=== PATIENT | female | born 1965 | race American Indian/Alaskan Native ===

== ENCOUNTER 2016-11-08 02:13 | Emergency (ER) | payer MEDICAID ==
[2016-11-08] MEDS ORDERED: MOTRIN PO ONE (08:44)
--- NOTE | 2016-11-08 08:45 | Emergency Department Report ---
ED ENT HPI - General Chief complaint: Sore Throat Stated complaint: FEVER, SORE THROAT Time Seen by Provider: 11/08/16 08:43 Source: patient Mode of arrival: Ambulatory Limitations: No Limitations - History of Present Illness Initial comments: 50-year-old female past medical history diabetes type 2 presents with complaint of 5 days of sore throat nasal and ear congestion. States she has had some body aches and some difficulty swallowing solids but not liquids. Patient speaking in full sentences him a no visible trismus or drooling. Awake alert and oriented 3, states she has also had slight cough. Denies any recent travel. Denies any chest pain no shortness of breath no palpitations no nausea no vomiting. States she may have been urinating slightly more than usual. MD complaint: sore throat Onset/Timin -: week(s) Location: throat Severity: moderate Severity scale (0 -10): 5 Quality: aching - Related Data Previous Rx's Medication Instructions Recorded Last Taken Type metFORMIN [Glucophage] 500 mg PO BID #60 tablet 11/11/14 1 Day Ago Rx Benzocaine/Menthol [Cepacol Sore 1 each MM Q4H PRN #18 lozenge 11/08/16 Unknown Rx Throat Lozenge] Ibuprofen [Motrin] 600 mg PO Q8H PRN #25 tablet 11/08/16 Unknown Rx Allergies Allergy/AdvReac Type Severity Reaction Status Date / Time No Known Allergies Allergy Verified 11/11/14 15:33 ED Dental HPI - General Chief complaint: Sore Throat Stated complaint: FEVER, SORE THROAT Time Seen by Provider: 11/08/16 08:43 Source: patient Mode of arrival: Ambulatory Limitations: No Limitations - Related Data Previous Rx's Medication Instructions Recorded Last Taken Type metFORMIN [Glucophage] 500 mg PO BID #60 tablet 11/11/14 1 Day Ago Rx Benzocaine/Menthol [Cepacol Sore 1 each MM Q4H PRN #18 lozenge 11/08/16 Unknown Rx Throat Lozenge] Ibuprofen [Motrin] 600 mg PO Q8H PRN #25 tablet 11/08/16 Unknown Rx Allergies Allergy/AdvReac Type Severity Reaction Status Date / Time No Known Allergies Allergy Verified 11/11/14 15:33 ED Review of Systems ROS: Stated complaint: FEVER, SORE THROAT Other details as noted in HPI ED Past Medical Hx - Past Medical History Previous Medical History?: Yes Hx Diabetes: Yes (type 2) Hx Psychiatric Treatment: Yes ("chronic depression") Additional medical history: "chronic pain" - Surgical History Past Surgical History?: Yes Additional Surgical History: hysterectomy. BILATERAL CARPAL TUNNEL - Social History Smoking Status: Never Smoker Substance Use Type: None - Medications Home Medications: Home Medications Medication Instructions Recorded Confirmed Last Taken Type metFORMIN [Glucophage] 500 mg PO BID #60 tablet 11/11/14 11/08/16 1 Day Ago Rx Benzocaine/Menthol [Cepacol Sore 1 each MM Q4H PRN #18 lozenge 11/08/16 Unknown Rx Throat Lozenge] Ibuprofen [Motrin] 600 mg PO Q8H PRN #25 tablet 11/08/16 Unknown Rx ED Physical Exam - General Limitations: No Limitations General appearance: alert, in no apparent distress - Head Head exam: Present: atraumatic, normocephalic - Eye Eye exam: Present: normal appearance, PERRL, EOMI - ENT ENT exam: Present: mucous membranes moist - Expanded ENT Exam Expanded Mouth exam: Present: normal external inspection Teeth exam: Present: normal inspection Throat exam: Positive: tonsillar erythema (no peritonsillar abscess, uvula is midline, visible tonsillar exudates left tonsillar pillar), tonsillar exudate - Neck Neck exam: Present: normal inspection, full ROM - Respiratory Respiratory exam: Present: normal lung sounds bilaterally. Absent: respiratory distress - Cardiovascular Cardiovascular Exam: Present: regular rate, normal rhythm. Absent: systolic murmur, diastolic murmur, rubs, gallop - GI/Abdominal GI/Abdominal exam: Present: soft, normal bowel sounds - Extremities Exam Extremities exam: Present: normal inspection - Back Exam Back exam: Present: normal inspection - Neurological Exam Neurological exam: Present: alert, oriented X3 - Psychiatric Psychiatric exam: Present: normal affect, normal mood - Skin Skin exam: Present: warm, dry, intact, normal color. Absent: rash ED Course Vital Signs 11/08/16 11/08/16 07:12 08:53 Temperature 98.2 F Pulse Rate 97 H Respiratory 14 16 Rate Blood Pressure 159/104 O2 Sat by Pulse 99 Oximetry ED Medical Decision Making - Lab Data Result diagrams: 11/08/16 09:56 11/08/16 09:56 - Medical Decision Making A/P: Strep pharyngitis, hyperglycemia 1-I discussed case with Dr. Wilson 2-patient rehydrated with 2 L of IV normal saline, fingerstick glucose rechecked 3-strep pharyngitis empirically treated with Bicillin IM 4-will prescribe Motrin 600 when necessary for fevers chills sore throat, throat lozenges when necessary, follow-up with primary care doctor, vital signs rechecked before discharge, stable Critical care attestation.: If time is entered above; I have spent that time in minutes in the direct care of this critically ill patient, excluding procedure time. ED Disposition Clinical Impression: Strep pharyngitis Disposition: DISCHARGED TO HOME OR SELFCARE Is pt being admited?: No Does the pt Need Aspirin: No Condition: Stable Instructions: Strep Throat (ED) Prescriptions: Benzocaine/Menthol [Cepacol Sore Throat Lozenge] 1 each MM Q4H PRN #18 lozenge PRN Reason: Sore Throat Ibuprofen [Motrin] 600 mg PO Q8H PRN #25 tablet PRN Reason: Pain Referrals: KRYS SCOTT MD [Primary Care Provider] - 3-5 Days RHONDA CENTENO JR, MD [Staff Physician] - 3-5 Days Forms: Work/School Release Form(ED), Accompanied Note Time of Disposition: 12:59
[2016-11-08] MEDS ORDERED: AUGMENTIN 875 MG PO ONE (09:02)
[2016-11-08 09:08] LABS: Bilirubin,Urine NEG (Negative); Blood,Urine NEG (Negative); Ketones,Urine 80 mg/dL (Negative); Leukocyte Esterase,Urine NEG (Negative); Nitrite,Urine NEG (Negative); Protein,Urine <15 mg/dL mg/dL (Negative); Urobilinogen,Urine < 2.0 mg/dL (<2.0)
[2016-11-08] MEDS ORDERED: NACL 0.9% 1000 ML 1,000 ML IV ONE ×2 (09:41→11:13)
[2016-11-08 10:14] LABS: Basophils % (Auto) 0.4 % (0.0-1.8); Eosinophils % (Auto) 0.5 % (0.0-4.3); Hematocrit 38.4 % (30.3-42.9); Hemoglobin 12.6 gm/dl (10.1-14.3); Mean Corpuscular HGB Conc 33 % (30-34); Mean Corpuscular Hemoglobin 26 pg (28-32); Mean Corpuscular Volume 80 fl (79-97); Platelet Count 267 K/mm3 (140-440); Red Blood Count 4.82 M/mm3 (3.65-5.03); Red Cell Distribution Width 12.7 % (13.2-15.2); White Blood Count 9.4 K/mm3 (4.5-11.0)
[2016-11-08 10:29] LABS: Anion Gap 22 mmol/L; Blood Urea Nitrogen 9 mg/dL (7-17); Calcium 9.6 mg/dL (8.4-10.2); Carbon Dioxide 24 mmol/L (22-30); Chloride 93.9 mmol/L (98-107); Glucose 296 mg/dL (65-100); Potassium 3.5 mmol/L (3.6-5.0); Sodium 136 mmol/L (137-145)
[2016-11-08 10:33] LABS: Albumin 3.7 g/dL (3.9-5); Albumin/Globulin Ratio 0.8 %; Bilirubin,Direct 0.2 mg/dL (0-0.2); Bilirubin,Indirect 0.7 mg/dL; Bilirubin,Total 0.9 mg/dL (0.1-1.2); Total Protein 8.1 g/dL (6.3-8.2)
[2016-11-08] MEDS ORDERED: BICILLIN L-A IM ONE ×3 (11:09→11:15)
[2016-11-08] MEDS ORDERED: BICILLIN L-A IM NR (13:00)
[2016-11-08 13:22] VITALS: BP 152/90
--- NOTE | 2016-11-09 08:51 | XRay Report ---
ROUTINE CHEST, TWO VIEWS: PA and lateral views demonstrate the heart and mediastinal contour to be of normal size and shape. The lungs are clear and fully expanded and the soft tissues and bony structures are normal. IMPRESSION: Normal study.
== END 2016-11-08 13:38 | disposition home or self-care (01) ==
LOC: ED 02:13
DX: J02.0 Streptococcal pharyngitis (principal); E11.9 Type 2 diabetes mellitus without complications; F32.9 Major depressive disorder, single episode, unspecified; G89.29 Other chronic pain; Z90.710 Acquired absence of both cervix and uterus
CPT/HCPCS: 36415; 71020; 80048; 80074; 81001; 81025; 82140; 82550; 82805; 82962; 84600; 85025; 87086; 87400; 87430; 96360; 96372; 99284; J0561; J7030

== ENCOUNTER 2019-03-21 22:03 | Emergency (ER) | payer MEDICAID ==
--- NOTE | 2019-03-21 23:18 | Event Note ---
ED Screening Note Date of service: 03/21/19 Time: 23:16 ED Screening Note: 53 y/o female comes in for hyperglycemia, abd pain and boils under her arm. This initial assessment/diagnostic orders/clinical plan/treatment(s) is/are subject to change based on patients health status, clinical progression and re- assessment by fellow clinical providers in the ED. Further treatment and workup at subsequent clinical providers discretion. Patient/guardian urged not to elope from the ED as their condition may be serious if not clinically assessed and managed. Initial orders include:
[2019-03-22 00:18] LABS: Hemoglobin 12.8 gm/dl (10.1-14.3); Red Blood Count 4.68 M/mm3 (3.65-5.03)
[2019-03-22 00:19] LABS: Basophils % (Auto) 0.5 % (0.0-1.8); Eosinophils # (Auto) 0.1 K/mm3 (0.0-0.4); Eosinophils % (Auto) 1.5 % (0.0-4.3); Hematocrit 37.9 % (30.3-42.9); Lymphocytes # (Auto) 2.1 K/mm3 (1.2-5.4); Lymphocytes % (Auto) 39.8 % (13.4-35.0); Mean Corpuscular HGB Conc 34 % (30-34); Mean Corpuscular Volume 81 fl (79-97); Mean Platelet Volume 8.6 fl (6-12); Monocytes # (Auto) 0.3 K/mm3 (0.0-0.8); Monocytes % (Auto) 5.1 % (0.0-7.3); Platelet Count 283 K/mm3 (140-440); Red Cell Distribution Width 13.1 % (13.2-15.2)
[2019-03-22 00:28] LABS: Alanine Aminotransferase 12 units/L (7-56); Albumin 4.1 g/dL (3.9-5); BUN/Creatinine Ratio 23; Blood Urea Nitrogen 9 mg/dL (7-17); Calcium 9.2 mg/dL (8.4-10.2); Hemolysis Index 9
[2019-03-22 01:22] LABS: Bilirubin,Urine NEG (Negative); Blood,Urine NEG (Negative); Color,Urine Yellow (Yellow); Mucus,Urine FEW /HPF; Protein,Urine <15 mg/dL mg/dL (Negative)
--- NOTE | 2019-03-22 02:23 | Emergency Department Report ---
ED General Adult HPI - General Chief complaint: Hyperglycemia Stated complaint: BACK PAIN/KNOTS UNDER ARM/ ABD PAIN Time Seen by Provider: 03/21/19 23:14 Source: patient, RN notes reviewed, old records reviewed Mode of arrival: Ambulatory Limitations: No Limitations - History of Present Illness Initial comments: This is a 53-year-old female. The patient has a past medical history of chronic pain, diabetes, and swollen pelvic area. Today, the patient presents to the ER with complaints of boils in her bilateral armpits, fungal discharge in her bilateral inguinal regions and perirectal region, left lower quadrant pain that radiates to the back, and suprapubic swelling, left-sided labial swelling. Symptoms have been present for the past day or 2. Pain is sharp, aching and throbbing, increases with palpation and decreases with rest. Patient denies vomiting. Patient makes no complaint of blurred vision to this provider. In the emergency room, patient treated with fluids and hydromorphone, which greatly improved her pain. -: Gradual Location: back, abdomen, pelvis, genitals, left, right, upper extremity Radiation: back Severity scale (0 -10): 8 Quality: aching Consistency: constant, now resolved Improves with: medication Worsens with: movement - Related Data Previous Rx's Medication Instructions Recorded Last Taken Type metFORMIN [Glucophage] 500 mg PO BID #60 tablet 05/26/18 Unknown Rx Acetaminophen [Arthritis Pain 650 mg PO Q6HR PRN #30 tablet.er 03/22/19 Unknown Rx Reliever] Doxycycline Hyclate [Doxycycline 100 mg PO Q12HR #14 tab 03/22/19 Unknown Rx Hyclate TAB] Ibuprofen [Motrin] 600 mg PO Q8H PRN #30 tablet 03/22/19 Unknown Rx Lancets [Lancets Thin] 1 each MC BID #60 each 03/22/19 Unknown Rx Nystatin [Nystop Powder] 60 gm TP TID #1 powder 03/22/19 Unknown Rx metFORMIN [Glucophage] 500 mg PO BID #60 tablet 03/22/19 Unknown Rx Allergies Allergy/AdvReac Type Severity Reaction Status Date / Time No Known Allergies Allergy Verified 11/11/14 15:33 ED Review of Systems ROS: Stated complaint: BACK PAIN/KNOTS UNDER ARM/ ABD PAIN Other details as noted in HPI Constitutional: malaise. denies: fever Eyes: denies: eye discharge ENT: denies: epistaxis Respiratory: denies: cough Cardiovascular: denies: chest pain Gastrointestinal: abdominal pain. denies: vomiting, hematemesis, melena, hematochezia Genitourinary: denies: frequency Musculoskeletal: back pain, arthralgia Skin: rash, lesions Neurological: weakness Psychiatric: anxiety ED Past Medical Hx - Past Medical History Hx Diabetes: Yes (type 2) Hx Psychiatric Treatment: Yes ("chronic depression") Additional medical history: "chronic pain" - Surgical History Additional Surgical History: hysterectomy. BILATERAL CARPAL TUNNEL - Social History Smoking Status: Unknown if ever smoked Substance Use Type: None - Medications Home Medications: Home Medications Medication Instructions Recorded Confirmed Last Taken Type metFORMIN [Glucophage] 500 mg PO BID #60 tablet 05/26/18 03/22/19 Unknown Rx Acetaminophen [Arthritis Pain 650 mg PO Q6HR PRN #30 tablet.er 03/22/19 Unknown Rx Reliever] Doxycycline Hyclate [Doxycycline 100 mg PO Q12HR #14 tab 03/22/19 Unknown Rx Hyclate TAB] Ibuprofen [Motrin] 600 mg PO Q8H PRN #30 tablet 03/22/19 Unknown Rx Lancets [Lancets Thin] 1 each MC BID #60 each 03/22/19 Unknown Rx Nystatin [Nystop Powder] 60 gm TP TID #1 powder 03/22/19 Unknown Rx metFORMIN [Glucophage] 500 mg PO BID #60 tablet 03/22/19 Unknown Rx ED Physical Exam - General Limitations: No Limitations General appearance: alert, anxious, in distress - Head Head exam: Present: atraumatic, normocephalic - Eye Eye exam: Present: normal appearance, EOMI. Absent: nystagmus - ENT ENT exam: Present: normal exam, normal orophraynx, mucous membranes moist, normal external ear exam - Neck Neck exam: Present: normal inspection, full ROM. Absent: tenderness, meningismus - Respiratory Respiratory exam: Present: normal lung sounds bilaterally. Absent: respiratory distress - Cardiovascular Cardiovascular Exam: Present: regular rate, normal rhythm, normal heart sounds. Absent: bradycardia, tachycardia, irregular rhythm, systolic murmur, diastolic murmur, rubs, gallop - GI/Abdominal GI/Abdominal exam: Present: soft, tenderness, other (there is suprapubic and left lower quadrant tenderness. There is no rebound, guarding or peritoneal signs.). Absent: distended, guarding, rebound, rigid, pulsatile mass - Rectal Rectal exam: Absent: normal inspection (excoriation and irritation noted to the gluteal cleft. Fungal lesions noted. Chaperoned by nurse Valeria Ramírez) - External exam: Present: erythema, swelling, other (the suprapubic region appears to be swollen. The left labia is swollen. There is no tenderness. There is no streaking or pus. There is no crepitus. Fungal lesions noted in the bilateral inguinal creases. Chaperoned by nurse Valeria Ramírez). Absent: normal external exam - Extremities Exam Extremities exam: Present: normal inspection, full ROM, other (2+ pulses noted in the bilateral upper, lower extremities. Compartments soft. No long bony tenderness. The pelvis is stable.). Absent: pedal edema, joint swelling, calf tenderness - Back Exam Back exam: Present: normal inspection, full ROM. Absent: tenderness, CVA tenderness (R), CVA tenderness (L), paraspinal tenderness, vertebral tenderness - Neurological Exam Neurological exam: Present: alert, oriented X3, other (Extraocular movements intact. Tongue midline. No facial droop. Facial sensation intact to light touch in the V1, V2, V3 distribution bilaterally. 5 and 5 strength in 4 extremities.. Sensation is intact to light touch in 4 extremities.). Absent: motor sensory deficit - Psychiatric Psychiatric exam: Present: anxious - Skin Skin exam: Present: warm, normal color, rash (fungal lesions and rash noted to the bilateral inguinal regions, and leonardo annal regions), other (patient has induration in her bilateral axilla, without abscesses. She has subcentimeter nodule in the right axilla and left axilla. The induration is minimally tender. There is no crepitus. There is minimal discharge.) ED Course Vital Signs 03/21/19 03/22/19 03/22/19 23:21 00:28 00:30 Temperature 98.1 F Pulse Rate 91 H 88 83 Respiratory 18 24 Rate Blood Pressure 161/107 160/85 Blood Pressure [Left] O2 Sat by Pulse 100 99 99 Oximetry 03/22/19 03/22/19 03/22/19 00:40 00:46 01:00 Temperature 97.7 F Pulse Rate 85 83 85 Respiratory 17 13 14 Rate Blood Pressure 163/97 152/98 Blood Pressure 160/85 [Left] O2 Sat by Pulse 96 97 100 Oximetry 03/22/19 03/22/19 03/22/19 01:30 01:46 02:00 Temperature Pulse Rate 83 87 83 Respiratory 17 14 Rate Blood Pressure 152/98 158/103 Blood Pressure [Left] O2 Sat by Pulse 97 99 98 Oximetry 03/22/19 03/22/19 03/22/19 02:16 02:30 03:04 Temperature Pulse Rate 78 86 Respiratory 13 16 Rate Blood Pressure 158/103 158/103 Blood Pressure [Left] O2 Sat by Pulse 98 100 100 Oximetry 03/22/19 03/22/19 03/22/19 03:16 03:30 03:46 Temperature Pulse Rate 78 79 76 Respiratory 19 14 Rate Blood Pressure 152/101 152/101 Blood Pressure [Left] O2 Sat by Pulse 96 94 94 Oximetry 03/22/19 03/22/19 03/22/19 04:00 04:16 04:30 Temperature Pulse Rate 77 82 77 Respiratory 12 Rate Blood Pressure 142/86 142/86 142/86 Blood Pressure [Left] O2 Sat by Pulse 96 95 96 Oximetry 03/22/19 03/22/19 04:46 05:00 Temperature Pulse Rate 78 79 Respiratory 13 Rate Blood Pressure 142/86 144/90 Blood Pressure [Left] O2 Sat by Pulse 98 97 Oximetry - Reevaluation(s) Reevaluation #1: 03/22/19 02:23 ga diagnostic technologist aware 11/29/2018 1 11/29/2018 ACETAMINOPHEN-COD #3 TABLET 16.0 2 GR BRO [id number] [facility] (5195) 0 36.0 MME Medicaid [place] ED Medical Decision Making - Lab Data Result diagrams: 03/21/19 23:24 03/21/19 23:24 Vital Signs 03/21/19 03/22/19 03/22/19 23:21 00:28 00:30 Temperature 98.1 F Pulse Rate 91 H 88 83 Respiratory 18 24 Rate Blood Pressure 161/107 160/85 Blood Pressure [Left] O2 Sat by Pulse 100 99 99 Oximetry 03/22/19 03/22/19 03/22/19 00:40 00:46 01:00 Temperature 97.7 F Pulse Rate 85 83 85 Respiratory 17 13 14 Rate Blood Pressure 163/97 152/98 Blood Pressure 160/85 [Left] O2 Sat by Pulse 96 97 100 Oximetry 03/22/19 03/22/19 03/22/19 01:30 01:46 02:00 Temperature Pulse Rate 83 87 83 Respiratory 17 14 Rate Blood Pressure 152/98 158/103 Blood Pressure [Left] O2 Sat by Pulse 97 99 98 Oximetry 03/22/19 03/22/19 03/22/19 02:16 02:30 03:04 Temperature Pulse Rate 78 86 Respiratory 13 16 Rate Blood Pressure 158/103 158/103 Blood Pressure [Left] O2 Sat by Pulse 98 100 100 Oximetry 03/22/19 03/22/19 03/22/19 03:16 03:30 03:46 Temperature Pulse Rate 78 79 76 Respiratory 19 14 Rate Blood Pressure 152/101 152/101 Blood Pressure [Left] O2 Sat by Pulse 96 94 94 Oximetry 03/22/19 03/22/19 03/22/19 04:00 04:16 04:30 Temperature Pulse Rate 77 82 77 Respiratory 12 Rate Blood Pressure 142/86 142/86 142/86 Blood Pressure [Left] O2 Sat by Pulse 96 95 96 Oximetry 03/22/19 03/22/19 04:46 05:00 Temperature Pulse Rate 78 79 Respiratory 13 Rate Blood Pressure 142/86 144/90 Blood Pressure [Left] O2 Sat by Pulse 98 97 Oximetry - Radiology Data Radiology results: report reviewed, image reviewed Print Report Referring Physician: DORI WOLFE Patient Name: KORI SANCHEZ Date of : 1965 Sex: Female Report Date: 2019-03-22 Report Status: [place] [address] Cat Scan Report Signed Patient: KORI SANCHEZ MR#: [id number] : 1965 Acct:[id number] Age/Sex: 53 / F ADM Date: 03/21/19 Loc: ED Attending Dr: Ordering Physician: DORI WOLFE MD Date of Service: 03/22/19 Procedure(s): CT abdomen pelvis w con Accession Number(s): [id number] cc: DORI WOLFE MD CT of the abdomen and pelvis with contrast INDICATION: Left pelvic pain COMPARISON: 11/11/2014 FINDINGS: Lung bases are clear. There is slight fatty infiltration of the liver. The spleen, pancreas, adrenal glands and kidneys show no abnormalities. No definite gallbladder or biliary tree abnormality. No fluid or adenopathy in the upper abdomen. CT of the pelvis shows scattered colonic diverticula. Appendix is seen and is normal. There is no diverticulitis. Uterus has been removed. No pelvic fluid or adenopathy. There is induration of the labia and perineum but there is no abscess or gas collection. No foreign body demonstrated. Again there is no intra-abdominal inflammatory process. IMPRESSION: Perineal cellulitis. No evidence of gangrene or intra-abdominal process. Automated exposure control was utilized to diminish radiation dose. Signer Name: Yves Lebron MD Signed: 03/22/2019 3:48 AM Workstation Name: [id number] Transcribed By: NISHI Dictated By: Yves Lebron MD Electronically Authenticated By: Yves Lebron MD Signed Date/Time: 03/22/19347 DD/ 034 - Medical Decision Making Differential diagnosis, including but not limited to: Colitis, diverticulitis, pyelonephritis, renal abscess, constipation, noncompliance, cellulitis, reactive changes, cutaneous tisha, hidradenitis, cellulitis Assessment and plan: 53-year-old female with multiple complaints Complaint #1, bilateral axillary boils. No obvious abscesses noted. Minimal induration noted. Small lesions noted that are already open, with no active or minimal drainage. Patient can apply warm compresses, wear loose fitting clothing, recommend better glycemic control, recommends no deodorant, and expectant management. At this point time, does not require incision and drainage, and can be managed supportively and symptomatically Complaint #2, abdominal pain: Laboratory studies reviewed, unremarkable, urinalysis not consistent with bacterial infection, CT scan of the abdomen and pelvis does not show any acute surgical process or emergent process. Complaint #3, fungal lesions noted in the gluteal cleft, and inguinal regions/labial regions, likely secondary to poor glycemic control. Plan is to apply topical nystatin, oral antibiotics. CT scan interpretation is reviewed and appreciated, suspects changes noted are likely reactive secondary to c andidiasis. Patient's pain is improved after hydromorphone. She is retching currently in her stretcher, and does not appear to be in any acute distress. She will be discharged with pain medication, topical nystatin, refill all metformin, oral antibiotics, instructions to follow up in 2-3 days for repeat evaluation. I do not have clinical suspicion for vaginal or labial cellulitis at this time, as she is not tender in these areas, this is discussed with gynecology on-call, Dr. Mahajan, who agrees with this plan of care, and agrees that patient does not meet criteria for admission to the hospital for intravenous antibiotics. Critical care attestation.: If time is entered above; I have spent that time in minutes in the direct care of this critically ill patient, excluding procedure time. ED Disposition Clinical Impression: Candidiasis, Lower abdominal pain, Boil, axilla Disposition: DC- TO HOME OR SELFCARE Is pt being admited?: No Does the pt Need Aspirin: No Condition: Stable Additional Instructions: Do not take metformin for the next 48 hours. Take pain medications as needed/d irected. Take the antibiotics as directed. Use the nystatin powder as directed. Apply warm compresses to the bilateral armpits, otherwise, keep them dry, and loosely covered, and do not apply deodorant. Wash vaginal region, and rectal/anal region, and inner leg regions once a day, with gentle soap and water. Otherwise, keep dry, and apply nystatin powder externally to these areas. Patient most likely is experiencing severe fungal irritation of the rectum, and bilateral inner thigh regions likely secondary to elevated blood sugar level. Recommend that patient improve diet, to lower blood sugar levels. It typically takes weeks or months to improve blood sugar levels. Patient may reference the [place] [employer] website for diet recommendations. This return to the ER in 2-3 days for wound checkup/evaluation, with the patient may follow up with a primary care doctor or laborer aquatic life for a wound checkup/evaluation. Please return to the emergency room right away with new pain, worsened pain, migration of pain, projectile vomiting, change in mental status, confusion, inability to tolerate liquid feeds, new, worsening or different symptoms not present on the initial emergency room evaluation. Long-term maintenance and control diabetes to lower blood sugar levels likely result in improvement in symptoms, and in patient quality of life. Prescriptions: Acetaminophen [Arthritis Pain Reliever] 650 mg PO Q6HR PRN #30 tablet.er PRN Reason: Pain , Severe (7-10) Doxycycline Hyclate [Doxycycline Hyclate TAB] 100 mg PO Q12HR #14 tab metFORMIN [Glucophage] 500 mg PO BID #60 tablet Lancets [Lancets Thin] 1 each MC BID #60 each Ibuprofen [Motrin] 600 mg PO Q8H PRN #30 tablet PRN Reason: Pain Nystatin [Nystop Powder] 60 gm TP TID #1 powder Referrals: NADIA THOMPSON MD [Primary Care Provider] - 3-5 Days EDUARDO MAHAJAN MD [Staff Physician] - 3-5 Days
[2019-03-22] MEDS ORDERED: DILAUDID IV ONE (02:36)
[2019-03-22] MEDS ORDERED: NYSTOP TP ONE (02:36)
[2019-03-22] MEDS ORDERED: NACL 0.9% 500 ML 500 ML IV ONE (02:36)
--- NOTE | 2019-03-22 03:52 | Cat Scan Report ---
CT of the abdomen and pelvis with contrast INDICATION: Left pelvic pain COMPARISON: 11/11/2014 FINDINGS: Lung bases are clear. There is slight fatty infiltration of the liver. The spleen, pancreas , adrenal glands and kidneys show no abnormalities. No definite gallbladder or biliary tree abnormali ty. No fluid or adenopathy in the upper abdomen. CT of the pelvis shows scattered colonic diverticula. Appendix is seen and is normal. There is no div erticulitis. Uterus has been removed. No pelvic fluid or adenopathy. There is induration of the labia and perineum but there is no abscess or gas collection. No foreign body demonstrated. Again there is no intra-abdominal inflammatory process. IMPRESSION: Perineal cellulitis. No evidence of gangrene or intra-abdominal process. Automated exposure control was utilized to diminish radiation dose. Signer Name: Yves Lebron MD Signed: 03/22/2019 3:48 AM Workstation Name: [id number]
[2019-03-22 05:06] VITALS: BP 144/90
== END 2019-03-22 05:53 | disposition home or self-care (01) ==
LOC: ED 22:03
DX: B37.9 Candidiasis, unspecified (principal); L02.92 Furuncle, unspecified; R10.32 Left lower quadrant pain; E11.9 Type 2 diabetes mellitus without complications; F32.9 Major depressive disorder, single episode, unspecified; Z90.710 Acquired absence of both cervix and uterus; Z79.899 Other long term (current) drug therapy
CPT/HCPCS: 36415; 74177; 80053; 81001; 82962; 85025; 96374; 99285; J1170; J7040; Q9967

== ENCOUNTER 2019-06-05 18:19 | Emergency (ER) | payer OTHER, MEDICAID ==
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
[2019-06-05] MEDS ORDERED: TORADOL IM ONE (22:09)
--- NOTE | 2019-06-05 23:13 | XRay Report ---
Pelvis single view INDICATION: Pelvic pain following injury IMPRESSION: No acute findings of the pelvis appreciated. Signer Name: Crispin Silva MD Signed: 06/05/2019 11:09 PM Workstation Name: [id number]
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
[2019-06-06 00:32] VITALS: BP 156/98
== END 2019-06-06 00:32 | disposition home or self-care (01) ==
LOC: ED 18:19
DX: S16.1XXA Strain of muscle, fascia and tendon at neck level, initial encounter (principal); S70.02XA Contusion of left hip, initial encounter; E11.9 Type 2 diabetes mellitus without complications; F32.9 Major depressive disorder, single episode, unspecified; G89.29 Other chronic pain; Z90.710 Acquired absence of both cervix and uterus; Z79.899 Other long term (current) drug therapy
CPT/HCPCS: 72040; 72170; 73030; 96372; 99284; J1885

== ENCOUNTER 2020-10-23 16:21 | Emergency (ER) | payer OTHER, MEDICAID ==
[2020-10-23] MEDS ORDERED: IBUPROFEN 800 MG TAB PO ONE (16:46)
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
[2020-10-23] MEDS ORDERED: KETOROLAC 30 MG/1 ML INJ IM ONE (16:47)
[2020-10-23 17:42] VITALS: BP 147/102
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
== END 2020-10-23 19:32 | disposition home or self-care (01) ==
LOC: ED 16:21
DX: M79.10 Myalgia, unspecified site (principal); M25.511 Pain in right shoulder; R07.89 Other chest pain; F32.9 Major depressive disorder, single episode, unspecified; E11.9 Type 2 diabetes mellitus without complications; Z90.710 Acquired absence of both cervix and uterus; Z79.899 Other long term (current) drug therapy; V49.59XA Passenger injured in collision with other motor vehicles in traffic accident, initial encounter; Y93.89 Activity, other specified; Y92.488 Other paved roadways as the place of occurrence of the external cause; Y99.8 Other external cause status
CPT/HCPCS: 71046; 96372; 99283; J1885